=== PATIENT | female | born 1970 | race Hispanic/Latino ===

== ENCOUNTER → 2018-05-15 | Day surgery (SDC) | payer OTHER ==
[~2018-05-15] MED LIST: FENTANYL CITRATE/PF 100MCG/2 ML INJ ONE; FERROUS SULFATE; MIDAZOLAM HCL 2 MG/2 ML VIAL ONE; PROPOFOL IV EMULSION 10 MG/ML 20 ML VIAL ONE; VITAMIN D1000 UNI1 PO; [UNRECOGNIZED DRUG - OTHER]; [UNRECOGNIZED DRUG - OTHER]; [UNRECOGNIZED DRUG - OTHER]; [UNRECOGNIZED DRUG - OTHER]; [UNRECOGNIZED DRUG - OTHER]
[2018-05-15 07:40] VITALS: BP 113/81
== END | disposition home or self-care (01) ==
LOC: OR 05:26
PROVIDERS: ATTEND Internal Medicine Gastroenterology
DX: K29.50 Unspecified chronic gastritis without bleeding (principal); D12.5 Benign neoplasm of sigmoid colon; K64.8 Other hemorrhoids; D50.9 Iron deficiency anemia, unspecified; E66.3 Overweight; D72.820 Lymphocytosis (symptomatic); Z68.26 Body mass index [BMI] 26.0-26.9, adult
CPT/HCPCS: 43239; 45380; 45381; 81025; J2250; J2704

== ENCOUNTER → 2018-05-16 | Outpatient (CLI) | payer OTHER ==
[~2018-05-16] MED LIST changes: +DIATRIZOATE MEGL/DIATRIZOA SOD 30 ML BTL PO ONE; -FENTANYL CITRATE/PF 100MCG/2 ML INJ ONE; +IOPAMIDOL 370 MG/ML 200 ML INFUS..BTL INJ ONE; -MIDAZOLAM HCL 2 MG/2 ML VIAL ONE; -PROPOFOL IV EMULSION 10 MG/ML 20 ML VIAL ONE; +SODIUM CHLORIDE 0.9% 50ML 50 ML ONE
--- NOTE | 2018-05-16 13:26 | Diagnostic Imaging Report ---
EXAM: CT Abdomen and Pelvis WITH contrast INDICATION: Mass COMPARISON: None. TECHNIQUE: Abdomen and Pelvis was scanned utilizing a multidetector helical scanner after administration of IV contrast. Coronal and sagittal reformations were obtained. IV CONTRAST: 100 mL Isovue-370 COMPLICATIONS: None RADIATION DOSE: Total DLP:252 mGy*cm Estimated effective dose: (DLP x 0.015 x size factor) mSv CTDIvol has been reviewed. It is below the limits set by the Radiation Protocol Committee (RPC). Appropriate CT dose reduction techniques were utilized. FINDINGS: Abdomen: Lung Bases: Multiple pulmonary nodules partially visualized in the lung bases, largest right 23 mm series 2 image 1 and 14 mm right image 10. Solid Organs: Multiple lesions in the liver, largest 129 mm image 15. Adrenals, kidneys, spleen, and pancreas unremarkable. Upper GI Tract: Decompressed stomach limits evaluation. No small bowel obstructive changes. Vascularity: No aortic aneurysm. Lymph Nodes: No suspicious mesenteric or aortocaval lymph nodes. Other: None. Pelvis: Bladder: Unremarkable. Other: Uterus/adnexa grossly unremarkable within limitations of CT. Colon: Marked wall thickening and irregularity of the distal sigmoid colon consistent with provided history of mass. Appendix unremarkable. Bones: There are a few tiny sclerotic foci in the pelvis, nonspecific. IMPRESSION: 1. Sigmoid mass with significant hepatic and partially visualized pulmonary parenchymal metastatic disease. Signed by: Dr. Timi Carbajal MD on 05/16/2018 1:23 PM
== END ==
LOC: CT 11:13
PROVIDERS: ATTEND Internal Medicine Gastroenterology
DX: R19.09 Other intra-abdominal and pelvic swelling, mass and lump (principal); E66.3 Overweight
CPT/HCPCS: 74177; Q9663; Q9967